=== PATIENT | female | born 1960 | race Caucasian/White ===

== ENCOUNTER 2019-12-13 13:57 | Outpatient (CLI) | payer MEDICAID ==
[~2019-12-13] VITALS: Ht 160 cm; Wt 58.1 kg
--- NOTE | 2019-12-18 08:00 | Consultation ---
DATE OF CONSULTATION: 12/13/2019 CONSULTING PHYSICIAN: Nico Damon MD. CHIEF COMPLAINT: Referral for abdominal pain and bloating. PAST MEDICAL HISTORY: None. PAST SURGICAL HISTORY: Appendectomy, knee surgery. MEDICATIONS: Please see medication reconciliation list. FAMILY HISTORY: No family history of GI malignancies. SOCIAL HISTORY: The patient quit tobacco in 1997, otherwise no alcohol. No IV drug abuse. ALLERGIES: To contrast material. REVIEW OF SYSTEMS: A 10-point review of systems was performed, was negative. PHYSICAL EXAMINATION: VITAL SIGNS: Temperature 97.3. Height is 5 feet 3 inches. Weight is 128. Vital signs stable HEENT: Normocephalic and atraumatic. Sclerae are anicteric. NECK: Supple. No evidence of obvious lymphadenopathy. CARDIOVASCULAR: Regular rate and rhythm. Plus S1-S2. LUNGS: Clear to auscultation bilaterally. ABDOMEN: Positive bowel sounds. Soft and nontender. No rebound. No guarding. No peritoneal sign. EXTREMITIES: No cyanosis, no clubbing, no edema. ASSESSMENT AND PLAN: This is a 59-year-old patient complaining about abdominal pain and abdominal bloating, never had a colonoscopy before. The patient was told that we will start with colonoscopy to see if we find anything to explain to her symptoms given she never had one and then after that we will get a followup and see what we found. The patient was given instruction for colonoscopy. Risks and benefits of procedure was explained to her. We will schedule when authorization is obtained. Nico Damon M.D. DR: CALLUM JOB#: [id number] CC:
== END 2019-12-13 15:57 | disposition home or self-care (01) ==
LOC: PAN 13:57
DX: R10.9 Unspecified abdominal pain (principal); R14.0 Abdominal distension (gaseous); Z90.89 Acquired absence of other organs; Z87.891 Personal history of nicotine dependence
CPT/HCPCS: G0463

== ENCOUNTER 2020-01-17 13:23 | Outpatient (CLI) | payer MEDICAID ==
[2020-01-17 13:39] VITALS: BP 98/58
--- NOTE | 2020-01-17 14:03 | General Progress Note ---
Subjective ROS Limited/Unobtainable: Yes Allergies: Coded Allergies: IODINATED CONTRAST MEDIA (Verified Allergy, Unknown, 12/14/19) Objective Last 24 Hour Vital Signs Date Time Temp Pulse Resp B/P (MAP) Pulse Ox O2 Delivery O2 Flow Rate FiO2 01/17/20 13:39 98.0 61 16 98/58 95 General Appearance: alert EENT: normal ENT inspection Neck: supple Cardiovascular: normal rate Respiratory/Chest: lungs clear Abdomen: normal bowel sounds, non tender, soft Extremities: non-tender Assessment/Plan Assessment/Plan: s/p colonoscopy c/o bloating trial of VSL #3 and Nico Saravia MD Jan 17, 2020 14:03
== END 2020-01-17 15:23 | disposition home or self-care (01) ==
LOC: PAN 13:23
DX: R14.0 Abdominal distension (gaseous) (principal); Z91.041 Radiographic dye allergy status
CPT/HCPCS: 99212